=== PATIENT | female | born 1985 | race Caucasian/White ===

== ENCOUNTER 2020-06-22 16:46 | Outpatient (REF) | payer OTHER, SELFPAY | END 2020-06-22 16:47 | disposition home or self-care (01) | LOC: HO.LAB 16:46 | PROVIDERS: Visit Provider Internal Medicine | DX: Z20.828 Contact with and (suspected) exposure to other viral communicable diseases (principal) | CPT/HCPCS: 36415; C9803; U0003 ==

== ENCOUNTER 2020-11-23 13:52 | Outpatient (REF) | payer OTHER, SELFPAY | END 2020-11-23 13:53 | disposition home or self-care (01) | LOC: HO.LAB 13:52 | PROVIDERS: Visit Provider Internal Medicine | DX: Z20.822 Contact with and (suspected) exposure to COVID-19 (principal) | CPT/HCPCS: C9803; U0003; U0005 ==

== ENCOUNTER 2022-02-22 09:20 | Emergency (ER) | payer OTHER, SELFPAY ==
--- NOTE | ~2022-02-22 | CT_ITS ---
EXAMINATION: CT SOFT TISSUE NECK WITH CONTRAST CLINICAL INFORMATION: Sore throat. COMPARISON: Cervical spine radiographs from 09/25/2016. TECHNIQUE: Multidetector helical imaging was performed in the axial plane following the administration of 60 mL of Omnipaque 350 intravenous contrast. Multiple axial reformats and coronal/sagittal reconstructions were created the technologist workstation for review. This CT examination was performed using dose optimization techniques as appropriate, variously including the following: *Automated exposure control. *Adjustment of mA and/or kV according to patient size (this includes techniques or standardized protocols for targeted exams where dose is matched to indication/reason for exam; i.e. extremities or head). *Use of iterative reconstruction technique. DLP: 677 mGy-cm FINDINGS: Moderate enlargement of the adenoids and bilateral palatine tonsils without demonstrated overt collection or mass lesion. Moderate edematous thickening of the soft palate. No demonstrated focal lesion or abnormal enhancement within the intrinsic tissues of the tongue or floor of mouth. There is moderate narrowing of the oropharyngeal airway. Otherwise, the airways remain widely patent. Moderately prominent bilateral level IIa lymphadenopathy, measuring up to 2.6 cm on the left and 2.5 cm on the right. Level Ib lymph nodes measure up to 1.1 cm bilaterally. Level IIb lymph nodes measure up to 1.4 cm on the left and 1.2 cm on the right. Otherwise, a rounded left-sided level III lymph node measures up to 1.1 cm. A left-sided retropharyngeal lymph node measures up to 1.6 cm. No significant cutaneous thickening or subcutaneous inflammation. No discrete fluid collection within the deep tissues of the neck. The premaxillary, retromaxillary, pterygopalatine fossa, orbital apical, parapharyngeal, and prelaryngeal adipose tissue is maintained. Normal appearance of the parotid, submandibular, and thyroid glands. Normal mucosal contours of the larynx without abnormal enhancement. Normal appearance of the hyoid bone, thyroid cartilage, or cartilaginous trachea. No radiopaque foreign bodies. The atlantooccipital and atlantoaxial articulations remain well aligned. Straightening of the normal cervical lordosis. Otherwise, there is anatomic alignment of the vertebral bodies and posterior elements. No evidence of acute fracture or subluxation of the cervical spine. The vertebral body heights are maintained. The intervertebral disc spaces are maintained. No evidence of epidural collection. There is no prevertebral soft tissue swelling. Normal opacification of the cervical arterial and venous structures. The visualized portion of the skull base is without significant abnormalities. Moderate mucosal thickening of the paranasal sinuses. The mastoid air cells and middle ear cavities are clear. No demonstrated significant periapical odontogenic disease. CT Upper Chest: The visualized lung apices and upper mediastinum are within normal limits. CT/CT soft tissue neck w IV con IMPRESSION: 1. Moderate edematous enlargement of the adenoids, bilateral palatine tonsils, and soft palate. No demonstrated discrete drainable collection or mass lesion. Associated moderate narrowing of the oral pharyngeal airway. 2. Moderate nonspecific upper cervical chain and retropharyngeal lymphadenopathy.
[2022-02-22 10:17] VITALS: BP 142/98; PULSE 106; RESP 16; TEMP 37.4; O2SAT 97; BMI 42.6
[2022-02-22 11:52] LABS: Strep A Nucleic Acid Positive (Negative)
[2022-02-22 12:10] LABS: COVID-19 Test Negative (Negative); IDNOW Serial# 55D5AD1C
[2022-02-22] MEDS: Ibuprofen 400 MG TABLET PO (16:37)
--- NOTE | 2022-02-22 18:35 | ED_ITS ---
HPI - URI/Sore Throat General Chief Complaint: General Medical <TESHA Bhakta Last Filed: 02/22/22 18:50> Stated Complaint: Sore throat/Fever <TESHA Bhakta Last Filed: 02/22/22 18:50> Time Seen by Provider: 02/22/22 18:12 <TESHA Bhakta Last Filed: 02/22/22 18:50> Source: patient <TESHA Bhakta Last Filed: 02/22/22 18:50> Mode of arrival: ambulatory <TESHA Bhakta Last Filed: 02/22/22 18:50> Limitations: no limitations <TESHA Bhakta Last Filed: 02/22/22 18:50> History of Present Illness HPI Narrative: 36-year-old female presenting to the ER with complaints of a fever that started on Sunday that was 102.0 and she started having ear pain and a sore throat that started on Sunday worse today with a productive cough with green col or sputum. she feels like her voice has changed and she is having difficulty swallowing. She denies any dizziness, headaches, Drooling, drainage from the ear, chest pain or shortness of breath, dyspnea on exertion, orthopnea, palpitations, paresthesias, nausea/ vomiting, abdominal pain, back pain, dysuria, hematuria, rashes, recent travel or sick contacts or any other symptoms complaints or concerns at this time. <TESHA Bhakta Last Filed: 02/22/22 18:50> MD elicited complaint: fever, cough, sore throat and other (Ear pain) <TESHA Bhakta Last Filed: 02/22/22 18:50> Onset (ago): day(s) (3) <TESHA Bhakta Last Filed: 02/22/22 18:50> Consistency: constant and progressively worsening <TESHA Bhakta Last Filed: 02/22/22 18:50> Severity: moderate <TESHA Bhakta Last Filed: 02/22/22 18:50> Description of mucous: yellow and green <TESHA Bhakta Last Filed: 02/22/22 18:50> Able to tolerate fluids by mouth: Yes <TESHA Bhakta Last Filed: 02/22/22 18:50> Exacerbating factors: swallowing <TESHA Bhakta Last Filed: 02/22/22 18:50> Associated symptoms: fever, chills, myalgias, rhinorrhea, nasal congestion, sore throat and cough <TESHA Bhakta Last Filed: 02/22/22 18:50> Treatments prior to arrival: ibuprofen (in the waiting room ) <TESHA Bhakta Last Filed: 02/22/22 18:50> Related Data Home Medications: Previous Rx's Medication Instructions Recorded cefuroxime axetil 250 mg tablet 250 mg PO BID #20 tabs 02/22/22 dexamethasone 4 mg tablet 4 mg PO TID #10 tabs 02/22/22 (Decadron) ibuprofen 600 mg tablet 600 mg PO Q8H PRN fever or pain 02/22/22 #20 tabs <TESHA Bhakta Last Filed: 02/22/22 18:50> Allergies/Adverse Reactions: Allergies Allergy/AdvReac Type Severity Reaction Status Date / Time Penicillins [PENICILLINS] Allergy Unknown UNKNOWN Unverified 03/04/20 17:37 <TESHA Bhakta Last Filed: 02/22/22 18:50> Review of Systems Review of Systems: Constitutional : + Fevers/ chills /fatigue/malaise, No Weight loss, No Night Sweats ENT/Mouth : + sore throat /nasal congestion/ rhinorrhea/ear pain / change in voice, No Hearing loss, No Sinus Pain Eyes: No Eye Pain, No Swelling, No Redness, No Foreign Body, No Discharge, No Vision Changes Cardiovascular : No Chest Pain, No SOB, No Dyspnea on Exertion, No Orthopnea, No Edema, No Palpitations Respiratory : + Cough, + Sputum, No Wheezing, No Smoke Exposure, No Dyspnea Gastrointestinal : No Nausea, No Vomiting, No Diarrhea, No Constipation, No abdominal Pain, No Hematochezia, No Melena Genitourinary : no irregular bleeding, No Dysuria, No Urinary Frequency, No Hematuria, No Urinary Incontinence, No Urgency, No Flank Pain, No Urinary Flow Changes, No Hesitancy Musculoskeletal : No joint pain, + Myalgias, No Joint Swelling Skin : No Skin Lesions, No rash Neuro : No Weakness, No Numbness, No Paresthesias, No Loss of Consciousness, No Dizziness, No Headache Psych : No Anxiety/Panic, No Depression, No SI/HI/AH/VH, No Social Issues, Heme/Lymph: No Bruising, No Bleeding,No Lymphadenopathy Endocrine : No Polyuria, No Polydipsia, No Temperature Intolerance <TESHA Bhakta - Last Filed: 02/22/22 18:50> Yes all other systems are reviewed and are negative <TESHA Bhakta - Last Filed: 02/22/22 18:50> [facility] Past Medical History Attestation statement: The following information was validated with the patient. <TESHA Bhakta - Last Filed: 02/22/22 18:50> Source: old records reviewed and nursing notes reviewed <TESHA Bhakta - Last Filed: 02/22/22 18:50> Social History Social History: Social History Advance Directives: No Advance Directives Information Provided: No <TESHA Bhakta - Last Filed: 02/22/22 18:50> Physical Exam Vital Signs: Vital Signs: Last Vital Signs Temp 99.3 F 02/22/22 10:17 Pulse 93 02/22/22 19:24 Resp 16 02/22/22 19:24 BP 122/66 02/22/22 19:24 Pulse Ox 98 02/22/22 19:24 O2 Del Method 02/22/22 19:24 BMI result Body Mass Index 42.6 vital signs have been reviewed as normal and appeared to be correct. Blood pressure 148/98. Heart rate 106 Respiration rate normal. Temperature normal. Oxygen saturation normal. <TESHA Bhakta - Last Filed: 02/22/22 18:50> Vital Signs: Last Vital Signs Temp 99.3 F 02/22/22 10:17 Pulse 93 02/22/22 19:24 Resp 16 02/22/22 19:24 BP 122/66 02/22/22 19:24 Pulse Ox 98 02/22/22 19:24 O2 Del Method 02/22/22 19:24 BMI result Body Mass Index 42.6 <TESHA Winston - Last Filed: 02/22/22 21:44> Appearance: Alert. Oriented X3. No acute distress. Head: Normal external exam. Normocephalic. Atraumatic. Eyes: PERRLA. EOMI. Conjunctiva and sclera normal. Eyelids normal. ENT: EAC normal. TM's Normal. posterior pharynx erythematous with moderate exudate noted bilaterally although she does have worsening swelling on the left posterior soft palate and her uvula is shifted to the right side and she has a muffled voice. Although no trismus or drooling is noted at this time. Patient is tolerating secretions well. The rest of the pharynx is within normal limits. Patient noted to have moist mucous membranes noted. No lesions/ulcerations or masses noted on the tongue. Neck: Normal inspection. Neck supple. FROM. + anterior cervical adenopathy Worse on the left. Thyroid Normal. No tracheal deviation noted. No crepitus is noted. No meningeal signs. No neck mass noted. No signs of trauma noted. CVS: Normal heart rate and rhythm. Heart sound normal. Pulses normal throughout. No murmurs/rales/gallops. Respiratory: No respiratory distress. Painless inspiration. Breath sounds normal. No wheezes/rales/rhonchi noted. Chest nontender. No crepitus is noted. No accessory muscle usage noted or decreased air movement noted. No signs of trauma. Abdomen: Soft and nontender. Nondistended. No guarding. No rigidity. Bowel sounds normal in all 4 quadrants. No distention noted. No organomegaly noted. No visible injury noted. No rebound tenderness. Back: Nontender. Skin: Skin warm and dry. Normal skin color. Normal skin turgor. No rashes/lesions/lacerations noted. Extremities: Extremities exhibit normal range of motion and nontender. Neuro: Oriented X 3. No motor deficit. No sensory deficit. Reflexes normal. Normal steady gait. No focal neuro deficits noted. CN's II-XII intact bilaterally? Vascular: + radial pulses/+ 2 distal pedal pulses/+2 dorsalis pedis b/l. Normal cap refill. No cyanosis noted to upper extremity nails and lower extremity toes nails. <TESHA Bahkta - Last Filed: 02/22/22 18:50> Course Course Course Narrative: 18:22pm - 36-year-old female presenting to the ER with complaints of a fever that started on Sunday that was 102.0 and she started having ear pain and a sore throat that started on Sunday worse today with a productive cough with green color sputum. she feels like her voice has changed and she is having difficulty swallowing. Plan: will obtain labs, blood cultures, lactic acid, CT scan of soft tissue n aniket To rule out peritonsillar abscess. Patient is positive for strep. will provide a L of IV fluids, 1 g of Rocephin and 10 mg of p.o. dexamethasone and patient already received 400 mg of Motrin re-evaluate. <TESHA Bhakta - Last Filed: 02/22/22 18:50> Reevaluation(s) Reevaluation #1: CT scan showing 1. Moderate edematous enlargement of the adenoids, bilateral palatine tonsils, and soft palate. No demonstrated discrete drainable collection or mass lesion. Associated moderate narrowing of the oral pharyngeal airway. ? 2. Moderate nonspecific upper cervical chain and retropharyngeal lymphadenopathy. Case discussed with Dr. Horta. given patient is handling her own secretions normally, has no difficulty breathing, is tolerating p.o. Comfortable with discharge home with oral antibiotics, steroids and pain control. She is tolerating oral pills, Jell-O and juice. She was given strict return precautions. She is encouraged to follow-up with her primary care doctor. She will come back to the ER call 911 if any of her symptoms get worse. <TESHA Winston - Last Filed: 02/22/22 21:44> MDM - URI/Sore Throat Medical Records Attestation: I reviewed the patient's medical records. <TESHA Bhakta - Last Filed: 02/22/22 18:50> Lab Data Attestation: I reviewed the patient's lab results. <TESHA Bhakta - Last Filed: 02/22/22 18:50> Result diagrams: : 02/22/22 18:53 02/22/22 18:53 <TESHA Bhakta - Last Filed: 02/22/22 18:50> Labs: Lab Results 02/22/22 02/22/22 02/22/22 Range/Units 11:37 11:37 18:53 WBC 20.2 H (4.8-10.8) X10*3/uL RBC 4.05 L (4.20-5.50) X10*6/uL Hgb 11.1 L (12.0-16.0) g/dl Hct 34.2 L (37.0-47.0) % MCV 84.4 (80.0-98.0) fL MCH 27.4 (27.0-33.0) pg MCHC 32.5 (31.0-35.0) g/dl RDW 14.7 (11.0-16.0) % Plt Count 326 (160-400) X10*3/uL MPV 9.3 L (9.4-12.3) fL Immature Gran % (Auto) 0.5 H (0.0-0.4) % Neut % (Auto) 83.2 H (45-73) % Lymph % (Auto) 10.7 L (20-40) % Lanier % (Auto) 5.2 (2-11) % Eos % (Auto) 0.1 (0-4) % Baso % (Auto) 0.3 (0-2) % Lymph # (Auto) 2.2 (1.2-4.9) X10*3/uL Lanier # (Auto) 1.1 (0.1-1.2) X10*3/uL Eos # (Auto) 0.0 (0.0-0.4) X10*3/uL Baso # (Auto) 0.1 (0.0-0.2) X10*3/uL Abs Immat Gran (auto) 0.11 H (0.00-0.03) X10*3/uL Absolute Neuts (auto) 16.8 H (2.0-8.3) x10*3/uL Absolute Nucleated RBC 0.000 (0.0-0.012) X10*3/uL Nucleated RBC % (auto) 0.0 (0.0-0.2) /100WBC PT (10.0-13.1) SEC INR (0.9-1.1) Sodium (135-145) mmol/L Potassium (3.3-5.1) mmol/L Chloride (96-108) mmol/L Carbon Dioxide (22-29) mmol/L Anion Gap (12-20) BUN (9-16) mg/dL Creatinine (0.5-1.4) mg/dL Estim Creat Clear Calc Estimated GFR Random Glucose (60-115) mg/dL Lactic Acid (0.5-2.0) mmol/L Calcium (8.4-10.2) mg/dL Magnesium (1.6-2.6) mg/dL Total Bilirubin (0.0-1.0) mg/dL AST (5-31) U/L ALT (0-31) U/L Alkaline Phosphatase (39-117) U/L Total Protein (6.5-8.0) g/dL Albumin (3.5-5.0) g/dL COVID-19 (PHOEBE) Negative (Negative) COVID-19 Clin Com See Note S. pyogenes GrpA ISI Positive A (Negative) 02/22/22 02/22/22 02/22/22 Range/Units 18:53 18:53 18:53 WBC (4.8-10.8) X10*3/uL RBC (4.20-5.50) X10*6/uL Hgb (12.0-16.0) g/dl Hct (37.0-47.0) % MCV (80.0-98.0) fL MCH (27.0-33.0) pg MCHC (31.0-35.0) g/dl RDW (11.0-16.0) % Plt Count (160-400) X10*3/uL MPV (9.4-12.3) fL Immature Gran % (Auto) (0.0-0.4) % Neut % (Auto) (45-73) % Lymph % (Auto) (20-40) % Lanier % (Auto) (2-11) % Eos % (Auto) (0-4) % Baso % (Auto) (0-2) % Lymph # (Auto) (1.2-4.9) X10*3/uL Lanier # (Auto) (0.1-1.2) X10*3/uL Eos # (Auto) (0.0-0.4) X10*3/uL Baso # (Auto) (0.0-0.2) X10*3/uL Abs Immat Gran (auto) (0.00-0.03) X10*3/uL Absolute Neuts (auto) (2.0-8.3) x10*3/uL Absolute Nucleated RBC (0.0-0.012) X10*3/uL Nucleated RBC % (auto) (0.0-0.2) /100WBC PT 14.5 H (10.0-13.1) SEC INR 1.3 H (0.9-1.1) Sodium 136 (135-145) mmol/L Potassium 3.6 (3.3-5.1) mmol/L Chloride 102 (96-108) mmol/L Carbon Dioxide 23 (22-29) mmol/L Anion Gap 15 (12-20) BUN 7 L (9-16) mg/dL Creatinine 0.93 (0.5-1.4) mg/dL Estim Creat Clear Calc 97.3 Estimated GFR > 60 Random Glucose 174 H (60-115) mg/dL Lactic Acid 0.9 (0.5-2.0) mmol/L Calcium 8.9 (8.4-10.2) mg/dL Magnesium 1.8 (1.6-2.6) mg/dL Total Bilirubin 0.3 (0.0-1.0) mg/dL AST 15 (5-31) U/L ALT 13 (0-31) U/L Alkaline Phosphatase 72 (39-117) U/L Total Protein 7.3 (6.5-8.0) g/dL Albumin 3.9 (3.5-5.0) g/dL COVID-19 ([facility]OEBE) (Negative) COVID-19 Clin Com S. pyogenes GrpA ISI (Negative) <TESHA Bhakta - Last Filed: 02/22/22 18:50> Lab Results 02/22/22 02/22/22 02/22/22 Range/Units 11:37 11:37 18:53 WBC 20.2 H (4.8-10.8) X10*3/uL RBC 4.05 L (4.20-5.50) X10*6/uL Hgb 11.1 L (12.0-16.0) g/dl Hct 34.2 L (37.0-47.0) % MCV 84.4 (80.0-98.0) fL MCH 27.4 (27.0-33.0) pg MCHC 32.5 (31.0-35.0) g/dl RDW 14.7 (11.0-16.0) % Plt Count 326 (160-400) X10*3/uL MPV 9.3 L (9.4-12.3) fL Immature Gran % (Auto) 0.5 H (0.0-0.4) % Neut % (Auto) 83.2 H (45-73) % Lymph % (Auto) 10.7 L (20-40) % Lanier % (Auto) 5.2 (2-11) % Eos % (Auto) 0.1 (0-4) % Baso % (Auto) 0.3 (0-2) % Lymph # (Auto) 2.2 (1.2-4.9) X10*3/uL Lanier # (Auto) 1.1 (0.1-1.2) X10*3/uL Eos # (Auto) 0.0 (0.0-0.4) X10*3/uL Baso # (Auto) 0.1 (0.0-0.2) X10*3/uL Abs Immat Gran (auto) 0.11 H (0.00-0.03) X10*3/uL Absolute Neuts (auto) 16.8 H (2.0-8.3) x10*3/uL Absolute Nucleated RBC 0.000 (0.0-0.012) X10*3/uL Nucleated RBC % (auto) 0.0 (0.0-0.2) /100WBC PT (10.0-13.1) SEC INR (0.9-1.1) Sodium (135-145) mmol/L Potassium (3.3-5.1) mmol/L Chloride (96-108) mmol/L Carbon Dioxide (22-29) mmol/L Anion Gap (12-20) BUN (9-16) mg/dL Creatinine (0.5-1.4) mg/dL Estim Creat Clear Calc Estimated GFR Random Glucose (60-115) mg/dL Lactic Acid (0.5-2.0) mmol/L Calcium (8.4-10.2) mg/dL Magnesium (1.6-2.6) mg/dL Total Bilirubin (0.0-1.0) mg/dL AST (5-31) U/L ALT (0-31) U/L Alkaline Phosphatase (39-117) U/L Total Protein (6.5-8.0) g/dL Albumin (3.5-5.0) g/dL COVID-19 ([facility]OE[facility]) Negative (Negative) COVID-19 Clin Com See Note S. pyogenes GrpA ISI Positive A (Negative) 02/22/22 02/22/22 02/22/22 Range/Units 18:53 18:53 18:53 WBC (4.8-10.8) X10*3/uL RBC (4.20-5.50) X10*6/uL Hgb (12.0-16.0) g/dl Hct (37.0-47.0) % MCV (80.0-98.0) fL MCH (27.0-33.0) pg MCHC (31.0-35.0) g/dl RDW (11.0-16.0) % Plt Count (160-400) X10*3/uL MPV (9.4-12.3) fL Immature Gran % (Auto) (0.0-0.4) % Neut % (Auto) (45-73) % Lymph % (Auto) (20-40) % Lanier % (Auto) (2-11) % Eos % (Auto) (0-4) % Baso % (Auto) (0-2) % Lymph # (Auto) (1.2-4.9) X10*3/uL Lanier # (Auto) (0.1-1.2) X10*3/uL Eos # (Auto) (0.0-0.4) X10*3/uL Baso # (Auto) (0.0-0.2) X10*3/uL Abs Immat Gran (auto) (0.00-0.03) X10*3/uL Absolute Neuts (auto) (2.0-8.3) x10*3/uL Absolute Nucleated RBC (0.0-0.012) X10*3/uL Nucleated RBC % (auto) (0.0-0.2) /100WBC PT 14.5 H (10.0-13.1) SEC INR 1.3 H (0.9-1.1) Sodium 136 (135-145) mmol/L Potassium 3.6 (3.3-5.1) mmol/L Chloride 102 (96-108) mmol/L Carbon Dioxide 23 (22-29) mmol/L Anion Gap 15 (12-20) BUN 7 L (9-16) mg/dL Creatinine 0.93 (0.5-1.4) mg/dL Estim Creat Clear Calc 97.3 Estimated GFR > 60 Random Glucose 174 H (60-115) mg/dL Lactic Acid 0.9 (0.5-2.0) mmol/L Calcium 8.9 (8.4-10.2) mg/dL Magnesium 1.8 (1.6-2.6) mg/dL Total Bilirubin 0.3 (0.0-1.0) mg/dL AST 15 (5-31) U/L ALT 13 (0-31) U/L Alkaline Phosphatase 72 (39-117) U/L Total Protein 7.3 (6.5-8.0) g/dL Albumin 3.9 (3.5-5.0) g/dL COVID-19 ([facility]OEBE) (Negative) COVID-19 Clin Com S. pyogenes GrpA ISI (Negative) <TESHA Winston - Last Filed: 02/22/22 21:44> Critical Care Time Critical Care Time Critical Care Time: Yes <TESHA Bhakta - Last Filed: 02/22/22 18:50> Total Critical Care Time: 60 <TESHA Bhakta Last Filed: 02/22/22 18:50> Attestation: I personally attest to this time spent taking care of the patient <TESHA Bhakta Last Filed: 02/22/22 18:50> Discharge Plan Discharge Clinical Impression: Acute bacterial pharyngitis <TESHA Bhakta Last Filed: 02/22/22 18:50> Patient Disposition: Home, Self-Care <TESHA Bhakta Last Filed: 02/22/22 18:50> Instructions: Strep Throat (ED) <TESHA Bhakta Last Filed: 02/22/22 18:50> Additional Instructions: Your CT scan today showed 1. Moderate edematous enlargement of the adenoids, bilateral palatine tonsils, and soft palate. No demonstrated discrete drainable collection or mass lesion. Associated moderate narrowing of the oral pharyngeal airway. ? 2. Moderate nonspecific upper cervical chain and retropharyngeal lymphadenopathy. Take the prescribed antibiotics as directed. Start taking them 1st thing tomorrow morning. Your given doses today in the emergency department. Recommend taking the prescribed steroids as directed, complete the entire course. Take the prescribed ibuprofen as needed for pain and fevers. Stay hydrated, drink plenty of fluid. Recommend warm saltwater gargles several times throughout the day. Change your toothbrush. If you develop new or worsening symptoms call 911 or come back to the ER for further evaluation. <TESHA Bhakta - Last Filed: 02/22/22 18:50> Prescriptions: New cefuroxime axetil 250 mg tablet 250 mg PO BID Qty: 20 0RF ibuprofen 600 mg tablet 600 mg PO Q8H PRN (Reason: fever or pain) Qty: 20 0RF dexamethasone [Decadron] 4 mg tablet 4 mg PO TID Qty: 10 0RF <TESHA Bhakta - Last Filed: 02/22/22 18:50>
[2022-02-22 19:05] LABS: Basophils Absolute Auto 0.1 X10*3/uL (0.0-0.2); Basophils Percent Auto 0.3 % (0-2); Eosinophils Percent Auto 0.1 % (0-4); Hematocrit 34.2 % (37.0-47.0); Hemoglobin 11.1 g/dl (12.0-16.0); Imm Gran Abs Auto 0.11 X10*3/uL (0.00-0.03); Imm Gran Pct Auto 0.5 % (0.0-0.4); Lymphocytes Absolute Auto 2.2 X10*3/uL (1.2-4.9); Lymphocytes Percent Auto 10.7 % (20-40); MANUAL DIFF FLAG NO; Mean Corpuscular HGB Conc 32.5 g/dl (31.0-35.0); Mean Corpuscular Hemoglobin 27.4 pg (27.0-33.0); Mean Corpuscular Volume 84.4 fL (80.0-98.0); Mean Platelet Volume 9.3 fL (9.4-12.3); Monocytes Absolute Auto 1.1 X10*3/uL (0.1-1.2); Monocytes Percent Auto 5.2 % (2-11); Neutrophils Absolute Auto 16.8 x10*3/uL (2.0-8.3); Neutrophils Percent Auto 83.2 % (45-73); Platelet Count 326 X10*3/uL (160-400); Red Blood Count 4.05 X10*6/uL (4.20-5.50); Red Cell Distribution Width 14.7 % (11.0-16.0); White Blood Count 20.2 X10*3/uL (4.8-10.8)
[2022-02-22] MEDS: cefTRIAXone sodium 1 GM in 0.9 % Sodium Chloride 50 ML IV (19:05)
[2022-02-22] MEDS: 0.9 % Sodium Chloride 1,000 ML 999 ML IVCONT (19:06)
[2022-02-22 19:10] LABS: INTERNATIONAL NORM RATIO 1.3 (0.9-1.1); Prothrombin Time 14.5 SEC (10.0-13.1)
[2022-02-22] MEDS: Ibuprofen Oral Susp 200 MG/10 ML ORAL.SUSP 600 MG PO (19:13)
[2022-02-22 19:15] LABS: Lactic Acid 0.9 mmol/L (0.5-2.0)
[2022-02-22] MEDS: dexAMETHasone sod phosphate 10 MG/ML VIAL IVPUSH (19:15)
[2022-02-22 19:24] VITALS: BP 122/66; PULSE 93; RESP 16; O2SAT 98
[2022-02-22 19:25] LABS: Alanine Aminotransferase 13 U/L (0-31); Albumin Level 3.9 g/dL (3.5-5.0); Alkaline Phosphatase 72 U/L (39-117); Anion Gap 15 (12-20); Aspartate Amino Transferase 15 U/L (5-31); Bilirubin Total 0.3 mg/dL (0.0-1.0); Blood Urea Nitrogen 7 mg/dL (9-16); Calcium 8.9 mg/dL (8.4-10.2); Carbon Dioxide 23 mmol/L (22-29); Chloride 102 mmol/L (96-108); Creatinine Clr Calc Pharmacy 97.3; Estimated Glomerular Filt Rate > 60; Glucose Random 174 mg/dL (60-115); Magnesium 1.8 mg/dL (1.6-2.6); Potassium 3.6 mmol/L (3.3-5.1); Sodium 136 mmol/L (135-145); Total Protein 7.3 g/dL (6.5-8.0)
[2022-02-22] MEDS: iohexoL 350 MG/ML 100 ML INFUS..BTL 60 ML IV (19:48)
[2022-02-22] MEDS: Acetaminophen 325 MG TABLET 975 MG PO (21:40)
== END 2022-02-22 22:38 | disposition home or self-care (01) ==
PROVIDERS: Emergency Medicine; Physician Assistant Medical; Emergency Provider Internal Medicine
DX: J02.0 Streptococcal pharyngitis (principal); R50.9 Fever, unspecified
CPT/HCPCS: 36415; 70491; 80053; 83605; 83735; 85025; 85610; 87040; 87635; 87651; 96361; 96365; 96375; 99283; 99284; J0696; J1100; Q9967

== ENCOUNTER 2025-01-31 16:21 | Emergency (ER) | payer OTHER, SELFPAY ==
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
[2025-01-31 16:33] VITALS: BP 122/79; BP 148/96; PULSE 102; PULSE 95; RESP 18; TEMP 36.8; O2SAT 100; O2SAT 98; BMI 43.0
[2025-01-31 16:38] VITALS: BP 130/69; PULSE 95; RESP 18; O2SAT 100
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
--- NOTE | 2025-01-31 17:29 | PC.NURSE ---
meat seafood associate at the bedside to discuss incident.
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
--- NOTE | 2025-01-31 18:49 | PC.NURSE ---
U/S at the bedside.
[2025-01-31 19:34] LABS: MANUAL DIFF FLAG NO
[2025-01-31 19:35] LABS: Hematocrit 36.6 % (37.0-47.0); Hemoglobin 12.3 g/dl (12.0-16.0); Imm Gran Abs Auto 0.05 X10*3/uL (0.00-0.03); Imm Gran Pct Auto 0.4 % (0.0-0.4); Lymphocytes Absolute Auto 1.6 X10*3/uL (1.2-4.9); Mean Corpuscular HGB Conc 33.6 g/dl (31.0-35.0); Mean Corpuscular Hemoglobin 27.8 pg (27.0-33.0); Mean Corpuscular Volume 82.6 fL (80.0-98.0); NRBC Abs Auto 0.000 X10*3/uL (0.0-0.012); NRBC Pct Auto 0.0 /100WBC (0.0-0.2); Platelet Count 407 X10*3/uL (160-400); Red Blood Count 4.43 X10*6/uL (4.20-5.50); White Blood Count 14.0 X10*3/uL (4.8-10.8)
[2025-01-31 19:37] LABS: Appearance Urine Clear; Glucose Urine UA Negative (Negative); PH 6.0 (5.0-9.0); Specific Gravity - Urine 1.015 (1.005-1.025)
[2025-01-31 19:51] LABS: Anion Gap 17 (12-20); Blood Urea Nitrogen 10 mg/dL (9-16); Calcium 9.5 mg/dL (8.4-10.2); Carbon Dioxide 22 mmol/L (22-29); Chloride 102 mmol/L (96-108); Creatinine Clr Calc Pharmacy 104.0; Estimated Glomerular Filt Rate > 60; Potassium 3.6 mmol/L (3.3-5.1); Sodium 137 mmol/L (135-145)
[2025-01-31 20:59] VITALS: BP 119/65; PULSE 84; RESP 18; TEMP 36.8; O2SAT 100
[2025-01-31 21:01] VITALS: BP 119/65; PULSE 84; RESP 18; TEMP 36.8; O2SAT 100
== END 2025-01-31 21:02 | disposition home or self-care (01) ==
PROVIDERS: Emergency Provider Emergency Medicine
DX: S61.217A Laceration without foreign body of left little finger without damage to nail, initial encounter (principal); S51.811A Laceration without foreign body of right forearm, initial encounter; R11.0 Nausea; R42 Dizziness and giddiness; X99.1XXA Assault by knife, initial encounter; Y93.9 Activity, unspecified; Y92.410 Unspecified street and highway as the place of occurrence of the external cause; Y99.9 Unspecified external cause status; Z33.1 Pregnant state, incidental
CPT/HCPCS: 36415; 76801; 80048; 81003; 84702; 85025; 86900; 86901; 99284

== ENCOUNTER → 2025-01-31 18:15 | Outpatient (BNV) | payer OTHER, SELFPAY | PROVIDERS: Emergency Provider Emergency Medicine; Visit Provider Nuclear Medicine | DX: Z3A.09 9 weeks gestation of pregnancy (principal) | CPT/HCPCS: 76801 ==